=== PATIENT | female | born 1935 | race Caucasian/White ===

== ENCOUNTER → 2016-09-08 | Outpatient (CLI) | payer MEDICARE, BC ==
[~2016-09-08] MED LIST: ANTIBIOTIC; ASPIRIN PO; ASPIRIN81 MG PO; ATARAX PO; CIPRODEX OTIC7.5 ML OT; COUMADIN5 MG PO; DIFLUCAN PO; FLONASE16 GM; HALCION0.125 MG PO; HALCION0.25 M1 PO; MEDROL PO; NAPROSYN500 MG PO; PHENERGAN PO; PULMICORT180 MCG/A1 INH; PULMICORT200 MCG/AE INH; SINGULAIR PO; TOPROL XL 50 MG50 MG PO; TOPROL XL PO; TOPROL XL50 MG PO; VICODIN PO; WARFARIN SODIUM4 M1 PO; ZOFRAN ODT4 MG PO
--- NOTE | ~2016-09-08 | CT57 ---
[facility] A Service of [facility] & [facility] RADIOLOGY TEXT RESULTS PATIENT: ERNESTO WILSON [facility] UNIT #: [id number] AGE: [address]: Modesta Fang SEX: F ORDER DR: [id number] [facility] [address] [place], [place] [address] [id number] O MR#: [id number] Acc #: [id number] NAME: ERNESTO WILSON : 1935 SEX: F STUDY DATE/TIME: 09/08/2016 14:26 UNIT: [facility] ROOM: STUDY DESCRIPTION: CT Chest Wo Cont Attending Physician: Modesta Fang A.P.R.N. Referring Physician: Modesta Fang A.P.R.N. Ordering Physician: Modesta Fang A.P.R.N. Primary Care Physician: Cecil Oconnell M.D. MEDICAL IMAGING REPORT This report is preliminary unless electronic signature is present EXAM CT chest without contrast INDICATIONS Hemoptysis for the past week. PROCEDURE Unenhanced CT of the chest. This CT exam was performed with one or more of the following radiation dose reduction techniques: automatic exposure control, adjustment of mA and/or kV according to patient size, and iterative reconstruction. COMPARISON 08/22/2013 FINDINGS There is stable volume loss in the left hemithorax with areas of scarring. There is a nodular area in the left apex that measures up to 10 mm that is new or significantly increased from the previous study. It is nonspecific but it is favored to represent scar. Calcified fullness in the left hilum and left infrahilar region is unchanged. There is new ground-glass opacity and consolidation in the lingula. There is a new poorly defined area of ground-glass opacity in the right upper lobe that measures 2.3 cm. There is a new 1.7 cm area of ground-glass opacity inferior right upper lobe. There are a few smaller areas of ground-glass opacity in the right lower lobe and right middle lobe that are also new. There is no pleural fluid. No pneumothorax. Cardiomegaly. Coronary artery calcification. Moderately prominent lymph nodes. A prevascular node measures 2.4 x 1.6 cm, previously 1.8 x 1 cm. Stable prominence of the pulmonary arteries in keeping with underlying pulmonary arterial hypertension. No acute findings in the included upper STS. [facility] A Service of [facility] & [facility] RADIOLOGY TEXT RESULTS PATIENT: ERNESTO WILSON LOCATION: [facility] : 34 UNIT #: [id number] AGE: [address]: Modesta Fang SEX: F ORDER DR: abdomen. No aggressive appearing bone lesion. IMPRESSION 1. New area of ground-glass opacity and consolidation in the lingula as well as a few scattered areas of new ground-glass opacity in the right lung. It is nonspecific. Possibilities include pneumonia or areas of pulmonary hemorrhage. 2. Stable volume loss and scarring in the left lung. There is an area of nodularity in the left apex that is new or significantly increased from previous study. Probably represents scar as well but recommend attention on a 3-month followup chest CT. 3. Interval increase in size of prevascular lymph nodes. These may be reactive but can be followed as well. 4. Other incidental findings are detailed above and very similar to prior. Dictated by... Nikolay Todd M.D. THIS IS AN ELECTRONICALLY VERIFIED REPORT Nikolay Todd M.D. at 09/10/2016 1:53 PM Priya TD: 09/09/2016 08:46 JOB #: [id number] MEDICAL IMAGING REPORT Page 1 of 1 COPY
== END | disposition home or self-care (01) ==
LOC: CCAT 13:22
DX: R04.2 Hemoptysis (principal); R91.8 Other nonspecific abnormal finding of lung field; J98.4 Other disorders of lung; R91.1 Solitary pulmonary nodule; R59.0 Localized enlarged lymph nodes
CPT/HCPCS: 71250; J0171

== ENCOUNTER → 2016-09-09 | Day surgery (SDC) | payer MEDICARE, BC ==
--- NOTE | ~2016-09-09 | OR ---
Unit #: [id number] #: [id number] Patient: ERNESTO WILSON [id number] [address] [place], [place] [address] [id number] O MR#: [id number] NAME: ERNESTO WILSON ROOM: Date of Procedure: 09/09/2016 Admission Date: 09/09/2016 Surgeon: Jose Alberto Lopez M.D. : 1935 Attending Physician: Tuan Lopez Primary Care Physician: Cecil Oconnell M.D. OPERATIVE REPORT PROCEDURE PERFORMED Bronchoscopy. ANESTHESIA Per Anesthesiology. Premedications include benzocaine and Xylocaine jelly. INDICATIONS FOR PROCEDURE Hemoptysis, atelectasis of the left lingular lobe. DESCRIPTION OF PROCEDURE After obtaining informed consent, bronchoscope was passed oropharyngeally. There was no evidence of lesions in the oropharynx. Vocal cords had no lesions on them, they moved symmetrically to midline. Bronchoscope was passed into the trachea, which was quite tortuous. 1% Xylocaine was used to anesthetize the right and left mainstem bronchus as well as the javier. Bronchoscope was passed in the right upper, right middle, and right lower. There was no evidence of any endobronchial lesion. Bronchoscope was then passed into the left upper lobe and left lower lobe; however, due to edema, erythema, and significant vascularization of the airways, it was unable to advance into the left lingular lobe. A bronchoalveolar lavage was performed to the left lingular entrance, and endobronchial biopsy was then done x3 and then bronchial wash was performed to the left lingular lobe entrance. The patient not tolerated the procedure well. Limitation is the patient oozed very easily with the even normal suctioning, therefore, only 3 surveillance bites were performed to the surface of the lingular takeoff. Thank you very much for this dictation. Please page me at [phone] if you have any questions. Dictated by... Arlette Cerda/jaime TD: 09/09/2016 22:53 JOB #: [id number] Unit #: [id number] #: [id number] Patient: WILSON,ERNESTO B OPERATIVE REPORT Page 1 of 1 X Tuan Lopez MD PROCEDURE OPERATIVE NOTE
[2016-09-09 16:52] LABS: BF TOTAL NUCLEATED CELL COUNT 107 CMM (0-100); BODY FLUID APPEARANCE BLOODY; BODY FLUID RBC 121427 CMM; BODY FLUID SOURCE BRONCHIAL LAVAGE
[2016-09-12 11:13] LABS: HSV 1 DNA Not Detected (Not Detected); HSV 2 DNA Not Detected (Not Detected)
== END | disposition home or self-care (01) ==
LOC: COPS 08:00
PROVIDERS: Internal Medicine Pulmonary Disease
DX: J98.11 Atelectasis (principal); R04.2 Hemoptysis; I48.91 Unspecified atrial fibrillation; J45.909 Unspecified asthma, uncomplicated; Z88.2 Allergy status to sulfonamides; Z88.1 Allergy status to other antibiotic agents; Z79.01 Long term (current) use of anticoagulants; Z79.891 Long term (current) use of opiate analgesic; Z79.51 Long term (current) use of inhaled steroids; Z79.899 Other long term (current) drug therapy; Z90.2 Acquired absence of lung [part of]
CPT/HCPCS: 76000; 87070; 87102; 87106; 87116; 87205; 87206; 87252; 87254; 87305; 87496; 87529; 88108; 88305; 89051; 89190

== ENCOUNTER → 2016-10-07 | Outpatient (CLI) | payer MEDICARE, BC ==
--- NOTE | ~2016-10-07 | CT71 ---
[facility] A Service of [facility] & [facility] RADIOLOGY TEXT RESULTS PATIENT: ERNESTO WILSON LOCATION: [facility] : 34 UNIT #: [id number] AGE: [address]: IRWIN MEYER MD SEX: F ORDER DR: [id number] [facility] [address] [facility] [place], [place] [address] [id number] O MR#: [id number] Acc #: [id number] NAME: ERNESTO WILSON : 1935 SEX: F STUDY DATE/TIME: 10/07/2016 12:55 UNIT: [facility] ROOM: STUDY DESCRIPTION: CT Head Wo Contrast Attending Physician: Irwin Meyer M.D. Referring Physician: Irwin Meyer M.D. Ordering Physician: Irwin Meyer M.D. Primary Care Physician: Irwin Meyer M.D. MEDICAL IMAGING REPORT This report is preliminary unless electronic signature is present EXAM CT head, 10/07/16. HISTORY Weakness. Weakness in legs since September 09. TECHNIQUE CT head performed skull base through vertex without intravenous contrast. This CT exam was performed with one or more of the following radiation dose reduction techniques: automatic exposure control, adjustment of mA and/or kV according to patient size, and iterative reconstruction. COMPARISON 09/21/2010. FINDINGS The brainstem shows bilateral symmetric small subcentimeter hypodensities in the mid rashard, visible on only a single image and not evident on the prior examination. There is significant beam-hardening artifact at this location and these hypodensities may represent beam-hardening artifact. The possibility of bilateral chronic lacunar infarcts not excluded. No acute-appearing brainstem abnormality. The cerebellum shows a zone of hypodensity along the lateral aspect of the right cerebellar hemisphere unchanged from prior examination and felt to represent either volume averaging through a CSF space or chronic ischemic insult. No acute appearing cerebellar abnormality. The cerebral hemispheres show preservation of ramey matter - white matter differentiation. There are periventricular and deep white matter tract probable sequelae of chronic microvascular ischemia. These are more pronounced than in 2010. 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 There is an ill-defined hypodensity in the posterior aspect of the right pham STS. [facility] A Service of [facility] RADIOLOGY TEXT RESULTS PATIENT: ERNESTO WILSON LOCATION: [facility] : 34 UNIT #: [id number] AGE: [address]: IRWIN MEYER MD SEX: F ORDER DR: radimona measuring about 9 mm in diameter. Not present on the prior examination and of unclear chronicity. Subacute ischemic focus not excluded. Best further evaluated with MRI if patient is candidate or short interval CT followup if the patient is not a candidate for MRI. There is no clear indication of hemorrhage, and no mass effect. The midline structures are nondisplaced. Ventricles, cisterns and sulci show mild generalized enlargement consistent with mild generalized atrophy. Slightly more pronounced than in 2011. There is no intra or extraaxial mass effect or abnormal intracranial fluid collection. Extensive cavernous carotid arterial calcification. There are vertebral arterial calcifications as well. Intraorbital soft tissues unremarkable. Visualized paranasal sinuses clear. Findings suggest prior bilateral mastoidectomy. Stable appearance. IMPRESSION 1. In comparison to a study dated 09/21/2010, there is a new focus of hypodensity in the posterior right pham radiata (image 30) measuring about 9 mm in diameter and of unclear exact chronicity. It is possible that this is chronic and represents a focus of small vessel ischemic change. I cannot exclude a subacute time course. It could best be further evaluated with MRI if the patient is a candidate or short interval CT follow up if the patient is not a candidate for MRI. 2. There is a new but chronic-appearing 4-5 mm lacunar infarct in the right anterior thalamus. While not present in 2011, its appearance today is clearly that of a chronic abnormality. 3. There are 2 small foci of hypodensity in the paracentral rashard as described above. This is an area of significant beam-hardening artifact and the appearance could be artifactual. The possibility of bilateral paracentral tiny lacunar infarcts is not excluded. 3. Periventricular and deep white matter tract probable sequelae of chronic microvascular ischemia more pronounced than in 2011. 4. Mild generalized atrophy more pronounced than in 2011. 5. There is a zone of hypodensity along the lateral aspect of the right cerebellar hemisphere unchanged from 2011 and favored to represent volume averaging through CSF space. Chronic ischemic encephalomalacic change not excluded. 6. Extensive vascular calcification. 7. Patient appears to be status post prior bilateral mastoidectomies. Dictated by... Sander Goyal M.D. THIS IS AN ELECTRONICALLY VERIFIED REPORT Sander Goyal M.D. at 10/08/2016 5:37 PM QUOC/ru [facility]. [facility] A Service of [facility] & [facility] RADIOLOGY TEXT RESULTS PATIENT: ERNESTO WILSON LOCATION: [facility] : 34 UNIT #: [id number] AGE: [address]: IRWIN MEYER MD SEX: F ORDER DR: TD: 10/07/2016 20:23 JOB #: [id number] MEDICAL IMAGING REPORT Page 1 of 1 COPY
== END | disposition home or self-care (01) ==
LOC: CCAT 09-29 13:40
DX: R53.1 Weakness (principal); I63.9 Cerebral infarction, unspecified; G31.9 Degenerative disease of nervous system, unspecified
CPT/HCPCS: 70450

== ENCOUNTER → 2016-11-11 | Outpatient (CLI) | payer MEDICARE, BC ==
--- NOTE | ~2016-11-11 | CR63 ---
[facility] A Service of [facility] & [facility] RADIOLOGY TEXT RESULTS PATIENT: ERNESTO WILSON LOCATION: [facility] : 34 UNIT #: [id number] AGE: [address]: Tuan Lopez MD SEX: F ORDER DR: [id number] [facility] [address] [facility]. [place], [place] [address] [id number] O MR#: [id number] Acc #: [id number] NAME: ERNESTO WILSON : 1935 SEX: F STUDY DATE/TIME: 11/11/2016 13:23 UNIT: [facility] ROOM: STUDY DESCRIPTION: CR Chest 2 View Attending Physician: Jose Alberto Lopez M.D. Referring Physician: Jose Alberto Lopez M.D. Ordering Physician: Jose Alberto Lopez M.D. Primary Care Physician: Irwin Granados M.D. MEDICAL IMAGING REPORT This report is preliminary unless electronic signature is present EXAM PA and lateral chest 11/11/2016 INDICATIONS Shortness of air, cough, COPD for 2 months. COMPARISON 08/05/2016. FINDINGS A portable view of the chest is obtained. There is mild cardiomegaly. The right lung is clear. There are postoperative changes involving the left chest and chest wall. There is slight volume loss. There has been no change. There are no infiltrates. IMPRESSION Postop changes left hemithorax which are stable from prior study. No active disease is visible. Dictated by... Juan M More M.D. THIS IS AN ELECTRONICALLY VERIFIED REPORT Juan M More M.D. at 11/12/2016 7:08 AM MAKAYLA/robby TD: 11/12/2016 03:47 JOB #: [id number] MEDICAL IMAGING REPORT Page 1 of 1 COPY
== END | disposition home or self-care (01) ==
LOC: CRAD 13:00
DX: J18.9 Pneumonia, unspecified organism (principal); J44.9 Chronic obstructive pulmonary disease, unspecified; I26.99 Other pulmonary embolism without acute cor pulmonale; Z98.890 Other specified postprocedural states
CPT/HCPCS: 71020

== ENCOUNTER → 2016-12-16 | Outpatient (CLI) | payer MEDICARE, BC ==
--- NOTE | ~2016-12-16 | CT57 ---
[facility] A Service of [facility] & [facility] RADIOLOGY TEXT RESULTS PATIENT: ERNESTO WILSON [facility] UNIT #: [id number] AGE: [address]: Modesta Fang SEX: F ORDER DR: [id number] [facility] [address] [place], [place] [address] [id number] O MR#: [id number] [facility] #: [id number] NAME: ERNESTO WILSON : 1935 SEX: F STUDY DATE/TIME: 12/16/2016 9:28 [facility] ROOM: STUDY DESCRIPTION: CT Chest Wo Cont Attending Physician: Modesta Fang A.P.R.N. Referring Physician: Modesta Fang A.P.R.N. Ordering Physician: Modesta Fang A.P.R.N. Primary Care Physician: Irwin Granados M.D. MEDICAL IMAGING REPORT This report is preliminary unless electronic signature is present EXAM CT chest 12/16/2016 HISTORY Pneumonia, congestion [address] chest performed without administration of intravenous contrast. Comparison 09/08/2016. This CT examination was performed with one or more of the following radiation dose reduction techniques: automatic exposure control, adjustment of mA and/or kV according to patient size, and iterative reconstruction. Thyroid unremarkable. No axillary adenopathy. There are multiple small subcentimeter prevascular, paratracheal and aortopulmonary window lymph nodes. These appear unchanged. There is a dominant prevascular node measuring 2 cm x 1.1 cm. Decreased from prior study when it measured 2.3 cm x 1.6 cm. There is a dominant pretracheal lymph node measuring 2.3 cm x 1.2 cm decreased from 2.4 cm x 1.4 cm. Densely calcified left infrahilar nodes exerting some mass effect on left lower lobe bronchus and proximal segmental bronchi. No change. Stable cardiac enlargement. Aortic valvular and coronary arterial calcifications. No pleural effusions. Stable left pleural thickening. Calcified granulomata in liver and spleen. Partially visualized gallbladder unremarkable. Visualized portions of pancreas, adrenal glands, upper renal poles notable for parenchymal calcification right upper renal pole. Esophagus, stomach, visualized transverse colon unremarkable. 6 mm x 1 cm left apical nodule stable to slightly decreased in overall volume. Subpleural fibrotic change in the left upper lobe is stable. Ground-glass densities in the superior and inferior lingular segments left upper lobe have resolved. Residual scarring in the left lower lobe. Peripheral subpleural fibrotic change in the left lower lobe. Stable basilar bronchiectasis. There are some chronic-appearing ground-glass densities in the left lower lobe likely reflecting chronic interstitial change. There are new areas of nodular density in the left STS. [facility] A Service of [facility] RADIOLOGY TEXT RESULTS PATIENT: ERNESTO WILSON LOCATION: [facility] : 34 UNIT #: [id number] AGE: [address]: Modesta Fang SEX: F ORDER DR: lower lobe 1 measuring 6-7 mm image 34, 3 very small subcentimeter nodular densities image number 37 the largest of which measures approximately 3 mm. 4 mm nodular density posteromedial right lower lobe image number 40. I would favor that these are of an infectious or inflammatory nature. Short-interval 3-month CT followup recommended. There is underlying emphysema. The right lung shows near complete resolution of previously seen areas of patchy ground-glass density. There is a small amount of residual change in the right upper lobe markedly decreased from prior study. There is a very small focus of ground-glass nodularity adjacent to the minor fissure in the right upper lobe, new compared to prior study and measuring about 3-4 mm image 31. Also likely of an infectious or inflammatory nature. Attention at followup recommended. No dense airspace disease on the right. Extensive atherosclerotic arterial calcifications. No aneurysm. The bony structures show no acute abnormality. IMPRESSION 1. Areas of scattered patchy ground-glass density previously seen in the right lung have almost completely resolved. There are some areas of minimal residual change as described above. Areas of ground-glass density in the left lingular segments have virtually completely resolved with minimal residual densities. 2. Previously seen 1 cm x 7 mm nodule left apex stable to marginally decreased in size. There are new subcentimeter noncalcified nodules in the left lower lobe. See locations and sizes above. These are favored to be of an infectious or inflammatory nature. 3-month CT followup recommended. They are not amenable to characterization with CT/PET scan and are not amenable to percutaneous sampling. 3. 3-4 mm ground-glass nodule right upper lobe adjacent to the minor fissure also new compared to prior study and also likely of an infectious or inflammatory etiology. Attention at followup recommended. 4. Fibrotic changes in the left lung and left hilar region stable. See discussion above. Densely calcified lymph nodes in the left hilar region. I would favor the fibrotic change is secondary to prior granulomatous infection. 5. Multiple small and moderately enlarged mediastinal lymph nodes as described above. These are stable to slightly decreased in size from prior study and favored to be benign/reactive. 6. Stable cardiac enlargement. 7. Extensive atherosclerotic arterial calcifications in coronary and systemic circulation. Note made of aortic valvular and mitral annular calcifications as well. Dictated by... Sander Goyal M.D. [facility]. [facility] A Service of [facility] RADIOLOGY TEXT RESULTS PATIENT: ERNESTO WILSON LOCATION: [facility] : 34 UNIT #: [id number] AGE: [address]: Modesta Fang SEX: F ORDER DR: THIS IS AN ELECTRONICALLY VERIFIED REPORT Sander Goyal M.D. at 12/18/2016 6:35 PM QUOC/patricia TD: 12/17/2016 11:07 JOB #: [id number] MEDICAL IMAGING REPORT Page 1 of 1 COPY
== END | disposition home or self-care (01) ==
LOC: CCAT 08:47
DX: J18.9 Pneumonia, unspecified organism (principal); I51.7 Cardiomegaly; R59.0 Localized enlarged lymph nodes; I25.10 Atherosclerotic heart disease of native coronary artery without angina pectoris; I35.8 Other nonrheumatic aortic valve disorders; R91.8 Other nonspecific abnormal finding of lung field; I34.8 Other nonrheumatic mitral valve disorders
CPT/HCPCS: 71250